=== PATIENT | female | born 2000 | race African-American/Black ===

== ENCOUNTER 2023-05-06 11:45 | Outpatient (CLI) | payer SELFPAY ==
[~2023-05-06] VITALS: Ht 185.4 cm; Wt 76.4 kg
[2023-05-06 12:18] VITALS: BP 106/65
[2023-05-06] MEDS ORDERED: HOME MED LIST COMPLETE! XX SCH (12:30)
[2023-05-06 13:39] LABS: BASO % 0.5 % (0.0-1.0); EOS # 0.2 10^3/uL (0.0-0.5); EOS % 1.9 % (0.0-3.0); HEMATOCRIT 33.3 % (36.0-47.0); HEMOGLOBIN 10.7 g/dl (12.0-15.5); LYMPH # 1.8 10^3/uL (1.5-5.0); LYMPH % 21.2 % (24.0-44.0); MEAN CORPUSCULAR HEMOGLOBIN 25.8 pg (27.0-33.0); MEAN CORPUSCULAR HGB CONC 32.1 g/dl (32.0-36.5); MEAN CORPUSCULAR VOLUME 80.2 fl (80.0-96.0); MONO # 0.8 10^3/uL (0.0-0.8); MONO % 8.9 % (2.0-8.0); NEUTROPHILS # 5.5 10^3/uL (1.5-8.5); PLATELET COUNT, AUTOMATED 215 10^3/uL (150-450); RED BLOOD COUNT 4.15 10^6/uL (4.00-5.40); WHITE BLOOD COUNT 8.4 10^3/uL (4.0-10.0)
[2023-05-06 13:54] LABS: LIPASE 28 U/L (12-53)
[2023-05-06 13:56] LABS: ALBUMIN 3.1 G/DL (3.2-5.2); ALKALINE PHOSPHATASE 50 U/L (46-116); ALT/SGPT 16 U/L (7.0-40); AMYLASE 83 U/L (30-118); AST/SGOT 8 U/L (<34); BILIRUBIN,TOTAL 0.2 MG/DL (0.3-1.2); BLOOD UREA NITROGEN 7 MG/DL (9-23); CARBON DIOXIDE LEVEL 24 MMOL/L (20-31); CHLORIDE LEVEL 106 MMOL/L (98-107); CREATININE FOR GFR 0.43 MG/DL (0.55-1.30); GLOMERULAR FILTRATION RATE > 60.0 (>60); GLUCOSE, FASTING 71 MG/DL (60-100); POTASSIUM SERUM 3.9 MMOL/L (3.5-5.1); SODIUM LEVEL 137 MMOL/L (136-145); TOTAL PROTEIN 6.8 G/DL (5.7-8.2)
[2023-05-06 14:29] LABS: HIV 1&2 SCREEN NEGATIVE (NEGATIVE)
[2023-05-06 14:37] LABS: HEPATITIS C VIRUS ABY INDEX 0.12 INDEX (<0.8)
== END 2023-05-06 18:00 | disposition home or self-care (01) ==
LOC: M LDO 11:45
PROVIDERS: ATTEND Obstetrics & Gynecology
DX: O26.893 Other specified pregnancy related conditions, third trimester (principal); R10.30 Lower abdominal pain, unspecified; O09.32 Supervision of pregnancy with insufficient antenatal care, second trimester; Z3A.19 19 weeks gestation of pregnancy
CPT/HCPCS: 36415; 59025; 76811; 80053; 82150; 83690; 85025; 86762; 86780; 86803; 86850; 86900; 86901; 87340; 87389; G0463

== ENCOUNTER → 2023-05-31 | Outpatient (REF) | payer MEDICAID ==
[2023-05-31 16:27] LABS: GC DNA AMPLIFICATION NEGATIVE (NEGATIVE)
== END ==
LOC: M PLALAB 11:37
PROVIDERS: ATTEND Advanced Practice Midwife
DX: Z34.02 Encounter for supervision of normal first pregnancy, second trimester (principal)

== ENCOUNTER → 2023-06-26 | Outpatient (CLI) | payer MEDICAID, OTHER | LOC: M WHC 08:37 | PROVIDERS: ATTEND Advanced Practice Midwife | DX: Z34.02 Encounter for supervision of normal first pregnancy, second trimester (principal) ==

== ENCOUNTER → 2023-07-05 | Outpatient (CLI) | payer OTHER | LOC: M LAB 08:08 | PROVIDERS: ATTEND Advanced Practice Midwife | DX: O99.810 Abnormal glucose complicating pregnancy (principal); Z3A.00 Weeks of gestation of pregnancy not specified ==

== ENCOUNTER → 2023-07-31 | Outpatient (CLI) | payer MEDICAID | LOC: M WHC 10:21 | PROVIDERS: ATTEND Advanced Practice Midwife | DX: O24.419 Gestational diabetes mellitus in pregnancy, unspecified control (principal); Z53.8 Procedure and treatment not carried out for other reasons ==

== ENCOUNTER → 2023-08-18 | Outpatient (REF) | payer MEDICAID | LOC: M PLALAB 15:57 | PROVIDERS: ATTEND Obstetrics & Gynecology | DX: Z36.85 Encounter for antenatal screening for Streptococcus B (principal); Z3A.35 35 weeks gestation of pregnancy ==

== ENCOUNTER → 2023-09-04 | Outpatient (CLI) | payer OTHER ==
[~2023-09-04] MED LIST: METF-839 PO; PRENTAB9 PO
== END ==
LOC: M WHC 08:29
PROVIDERS: ATTEND Obstetrics & Gynecology
DX: O24.419 Gestational diabetes mellitus in pregnancy, unspecified control (principal)

== ENCOUNTER 2023-09-05 14:39 | Inpatient (IN) | payer OTHER ==
[2023-09-05] VITALS (7 sets, daily range): BP systolic 98–130; BP diastolic 55–73
[~2023-09-05] VITALS: Ht 185.4 cm; Wt 86.4 kg
[2023-09-05] MEDS ORDERED: OXYTOCIN DRIP 30 UNITS in IV 1 EA IV PRN (15:55)
[2023-09-05] MEDS ORDERED: LIDOCAINE 1% MDV 20ML VIAL INFIL PRN (15:55)
[2023-09-05] MEDS ORDERED: PRENTAB9 PO (15:59)
[2023-09-05] MEDS ORDERED: METF-839 PO (15:59)
[2023-09-05] MEDS ORDERED: HOME MED LIST COMPLETE! XX SCH (16:00)
[2023-09-05] MEDS: miSOPROStol 50MCG 1/2 TABLET SL SCH ×2 (16:15→20:44)
[2023-09-05 16:19] LABS: HEMATOCRIT 37.3 % (36.0-47.0); HEMOGLOBIN 11.8 g/dl (12.0-15.5); MEAN CORPUSCULAR HEMOGLOBIN 25.6 pg (27.0-33.0); MEAN CORPUSCULAR HGB CONC 31.6 g/dl (32.0-36.5); MEAN CORPUSCULAR VOLUME 80.9 fl (80.0-96.0); PLATELET COUNT, AUTOMATED 176 10^3/uL (150-450); RED BLOOD COUNT 4.61 10^6/uL (4.00-5.40); WHITE BLOOD COUNT 6.9 10^3/uL (4.0-10.0)
[2023-09-06] VITALS (44 sets, daily range): BP systolic 99–192; BP diastolic 55–134
[2023-09-06] MEDS: miSOPROStol 50MCG 1/2 TABLET SL SCH ×2 (01:14→05:17)
[2023-09-06] MEDS ORDERED: OXYTOCIN DRIP 30 UNITS in IV 1 EA IV SCH (09:45)
[2023-09-06] MEDS: LR 1,000 ML IV SCH ×3 (10:41→20:28)
[2023-09-06] MEDS ORDERED: PROMETHAZINE 25MG/ML 1ML VIAL IV ONE (16:35)
[2023-09-06] MEDS ORDERED: BUTORPHANOL 2 MG/ML 1ML VIAL IV ONE (16:35)
[2023-09-06] MEDS ORDERED: EPIDURAL/PCA KEYS XX PRN (19:45)
[2023-09-06] MEDS ORDERED: ePHEDrine SULFATE 25 MG/5 ML(5MG/ML) SYRINGE IVP PRN (19:45)
[2023-09-06] MEDS ORDERED: diphenhydrAMINE 50MG/ML VIAL IV PRN (19:45)
[2023-09-06] MEDS ORDERED: LR 500 ML IV PRN (19:45)
[2023-09-06] MEDS ORDERED: ONDANSETRON 4MG 2ML VIAL IV PRN (19:45)
[2023-09-06] MEDS ORDERED: NALOXONE INJ 0.4MG/1ML VIAL IV PRN (19:45)
[2023-09-06] MEDS ORDERED: FENTANYL/ROPIVACAINE/NACL BAG 100 ML EPIDURAL SCH (19:45)
[2023-09-06] MEDS ORDERED: DIBUCAINE 1% OINTMENT 30GM TOP PRN (23:45)
[2023-09-06] MEDS ORDERED: IBUPROFEN 600MG TAB PO PRN (23:45)
[2023-09-06] MEDS ORDERED: ACETAMINOPHEN 500 MG TAB PO PRN (23:45)
[2023-09-06] MEDS ORDERED: DOCUSATE SODIUM 100MG CAPSULE PO PRN (23:45)
[2023-09-06] MEDS ORDERED: ACETAMINOPHEN TAB 650MG DOSE (2X325MG) PO PRN (23:45)
[2023-09-06] MEDS ORDERED: METHYLERGONOVINE MALEATE 0.2 MG TAB PO PRN (23:45)
[2023-09-06] MEDS ORDERED: IBUPROFEN 800 MG TAB PO PRN (23:45)
[2023-09-06] MEDS ORDERED: RHOGAM 300MCG (1500IU) INJ IM SCH (23:45)
[2023-09-07 00:13] VITALS: BP 92/54
[2023-09-07 00:18] VITALS: BP 123/63
[2023-09-07 00:28] VITALS: BP 118/64
[2023-09-07 01:46] VITALS: BP 108/59; O2SAT 99
[2023-09-07 06:00] VITALS: BP 100/58; O2SAT 98
[2023-09-07] MEDS: PRENATAL VITAMINS CHEWABLE TABLET PO SCH (09:00)
[2023-09-07 18:00] VITALS: BP 104/58; O2SAT 99
[2023-09-08 06:00] VITALS: BP 96/51; O2SAT 97
[2023-09-08] MEDS ORDERED: MEASLES,MUMPS,RUBELLA VACCINE INJ (MMR-II) SC.IMMUN ONE (09:00)
[2023-09-08] MEDS: PRENATAL VITAMINS CHEWABLE TABLET PO SCH (09:02)
[2023-09-08] MEDS ORDERED: BOOSTRIX VACCINE (TETANUS/DIPHTH/ACEL. PERTUSSIS) 0.5ML SYR IM.IMMUN ONE (13:20)
[2023-09-08] MEDS ORDERED: INFLUENZA QUADRIVALENT PF VACCINE 0.5ML SYRINGE IM.IMMUN ONE (13:30)
== END 2023-09-08 15:21 | disposition home or self-care (01) | DRG 560 ==
LOC: M LDI 14:39 → M OBS 09-07 01:45
PROVIDERS: ADMIT Specialist; ATTEND Advanced Practice Midwife
PROC: 3E0P7GC Introduction of Other Therapeutic Substance into Female Reproductive, Via Natural or Artificial Opening (ICD-10-PCS; 2023-09-05)
PROC: 10E0XZZ Delivery of Products of Conception, External Approach (ICD-10-PCS; principal; 2023-09-06)
PROC: 10907ZC Drainage of Amniotic Fluid, Therapeutic from Products of Conception, Via Natural or Artificial Opening (ICD-10-PCS; 2023-09-06)
DX: O24.425 Gestational diabetes mellitus in childbirth, controlled by oral hypoglycemic drugs (principal); O66.0 Obstructed labor due to shoulder dystocia; Z3A.38 38 weeks gestation of pregnancy; Z79.84 Long term (current) use of oral hypoglycemic drugs; O69.81X0 Labor and delivery complicated by cord around neck, without compression, not applicable or unspecified; Z37.0 Single live birth

== ENCOUNTER → 2024-08-08 | Outpatient (REF) | payer MEDICAID, OTHER ==
[2024-08-08 19:35] LABS: Trichomonas vaginalis (AMP) NOT DETECTED (NEGATIVE)
[2024-08-08 19:59] LABS: GC DNA AMPLIFICATION NEGATIVE (NEGATIVE)
== END ==
LOC: M SFHCWAGY 17:19
PROVIDERS: ATTEND Nurse Practitioner Family
DX: Z12.4 Encounter for screening for malignant neoplasm of cervix (principal); R10.2 Pelvic and perineal pain

== ENCOUNTER → 2024-08-08 | Outpatient (CLI) | payer OTHER ==
[2024-08-08 18:57] LABS: HEPATITIS B SURFACE ANTIGEN NEGATIVE (NEGATIVE)
[2024-08-08 19:09] LABS: HIV 1&2 SCREEN NEGATIVE (NEGATIVE)
[2024-08-08 19:16] LABS: HEPATITIS B CORE ANTIBODY IGM NEGATIVE (NEGATIVE); HEPATITIS C VIRUS ABY INDEX < 0.02 INDEX (<0.8)
== END ==
LOC: M PLALAB 14:52
PROVIDERS: ATTEND Nurse Practitioner Family
DX: Z11.3 Encounter for screening for infections with a predominantly sexual mode of transmission (principal)

== ENCOUNTER → 2025-08-12 | Outpatient (REF) | payer OTHER ==
[2025-08-12 19:39] LABS: Trichomonas vaginalis (AMP) NOT DETECTED (NEGATIVE)
[2025-08-12 20:02] LABS: GC DNA AMPLIFICATION NEGATIVE (NEGATIVE)
== END ==
LOC: M SFHCWAGY 17:08
PROVIDERS: ATTEND Nurse Practitioner Family
DX: Z11.3 Encounter for screening for infections with a predominantly sexual mode of transmission (principal)